=== PATIENT | female | born 1990 | race Caucasian/White ===

== ENCOUNTER 2021-03-08 15:30 | Emergency (ER) | payer OTHER ==
[2021-03-08] MEDS ORDERED: BACTROBAN OINT22 GM EXT (18:18)
== END 2021-03-08 18:24 | disposition home or self-care (01) ==
LOC: ER1 15:30
DX: S61.012A Laceration without foreign body of left thumb without damage to nail, initial encounter (principal); W26.8XXA Contact with other sharp object(s), not elsewhere classified, initial encounter
CPT/HCPCS: 12001; 73130; 99283